=== PATIENT | male | born 1970 | race Caucasian/White ===

== ENCOUNTER 2019-06-18 02:54 | Emergency (ER) | payer MEDICAID, OTHER ==
[~2019-06-18] VITALS: Ht 172.7 cm; Wt 113.4 kg
[2019-06-18 03:23] LABS: BASOPHILS % (AUTO) 0.6 % (0.0-2.0); EOSINOPHILS # (AUTO) 0.1 K/uL (0.0-0.7); EOSINOPHILS % (AUTO) 1.9 % (0.0-7.0); HEMATOCRIT 32.3 % (36.7-47.1); HEMOGLOBIN 10.4 g/dL (12.5-16.3); LYMPHOCYTES # (AUTO) 2.1 K/uL (20.0-40.0); LYMPHOCYTES % (AUTO) 28.2 % (20.5-51.5); MEAN CORPUSCULAR HEMOGLOBIN 27.6 uug (23.8-33.4); MEAN CORPUSCULAR HGB CONC 32 g/dL (32.5-36.3); MONOCYTES # (AUTO) 0.5 K/uL (2.0-10.0); MONOCYTES % (AUTO) 6.4 % (0.0-11.0); NEUTROPHILS # (AUTO) 4.8 K/uL (1.8-8.9); NEUTROPHILS % (AUTO) 62.9 % (38.5-71.5); PLATELET COUNT (AUTO) 186 K/uL (152-348); RED BLOOD CELL COUNT(AUTO) 3.75 MIL/uL (4.06-5.63); WHITE BLOOD COUNT (AUTO) 7.6 K/uL (3.6-10.2)
--- NOTE | 2019-06-18 03:33 | NUR ---
x-ray test technician at bedside.
[2019-06-18 03:35] LABS: CREATININE 0.9 mg/dL (0.6-1.3); POTASSIUM 3.9 mmol/L (3.5-5.1)
[2019-06-18 03:48] LABS: BILIRUBIN,DIRECT 0.2 mg/dL (0.0-0.2); BILIRUBIN,TOTAL 0.5 mg/dL (0.2-1.0); TOTAL PROTEIN, SERUM 7.4 g/dL (6.4-8.2)
[2019-06-18] MEDS ORDERED: ASPIRIN 325 MG TABLET ONE (04:24)
--- NOTE | 2019-06-18 04:29 | NUR ---
business services tech at bedside
[2019-06-18] MEDS ORDERED: ASPIRIN 325 MG TABLET PO ONE (04:30)
[2019-06-18] MEDS ORDERED: TERA2CAP4 PO (06:37)
[2019-06-18] MEDS ORDERED: lantus SUBCUT (06:37)
[2019-06-18] MEDS ORDERED: ASPI-605 PO (06:37)
[2019-06-18] MEDS ORDERED: ATOR20TA PO (06:37)
[2019-06-18] MEDS ORDERED: GLIP10TA11 PO (06:37)
[2019-06-18] MEDS ORDERED: metoprolol PO (06:37)
[2019-06-18] MEDS ORDERED: METF-442 PO (06:37)
[2019-06-18] MEDS ORDERED: GABA-534 PO (06:37)
[2019-06-18] MEDS ORDERED: FURO-151 PO (06:37)
[2019-06-18] MEDS ORDERED: ESCI20TA PO (06:37)
[2019-06-18] MEDS ORDERED: abilify PO (06:37)
[2019-06-18] MEDS ORDERED: WARF7.5T23 PO (06:37)
[2019-06-18] MEDS ORDERED: LORA-258 PO (06:37)
--- NOTE | 2019-06-18 07:38 | NUR ---
Patient is awake and alert. Denies chest pain or SOB at this time. States he has an appointment with sleep apnea clinic and states he will f/u with it. DC and follow up instructions given and explained to patient who states he understands all instructions. States his friend will drive him home.
--- NOTE | 2019-06-18 07:40 | NUR ---
IV removed. Catheter intact and site benign. Pressure and 4x4 gauze applied to site. No bleeding noted.
[2019-06-19] MEDS ORDERED: INSU100V28 SQ (16:21)
[2019-06-21] MEDS ORDERED: SULF1TAB48 PO (17:45)
== END 2019-06-18 07:41 | disposition home or self-care (01) ==
LOC: ER 03:00
DX: R07.89 Other chest pain (principal); R06.02 Shortness of breath; I50.9 Heart failure, unspecified; I25.10 Atherosclerotic heart disease of native coronary artery without angina pectoris; I10 Essential (primary) hypertension; E11.9 Type 2 diabetes mellitus without complications; Z79.82 Long term (current) use of aspirin; Z79.01 Long term (current) use of anticoagulants; Z79.899 Other long term (current) drug therapy
CPT/HCPCS: 36415; 70030-TC; 71045; 85025; 93005; A4663

== ENCOUNTER 2019-06-19 12:28 | Inpatient (IN) | payer MEDICAID, OTHER ==
[~2019-06-19] VITALS: Ht 170.2 cm; Wt 198.2 kg
[~2019-06-19 12:28] MED LIST: ASPI-605 PO; ATOR20TA PO; ESCI20TA PO; FURO-151 PO; GABA-534 PO; GLIP10TA11 PO; LORA-258 PO; METF-442 PO; TERA2CAP4 PO; WARF7.5T23 PO; abilify PO; lantus SUBCUT; metoprolol PO
[2019-06-19 13:03] LABS: BASOPHILS % (AUTO) 0.3 % (0.0-2.0); EOSINOPHILS # (AUTO) 0.1 K/uL (0.0-0.7); EOSINOPHILS % (AUTO) 1.2 % (0.0-7.0); HEMATOCRIT 33.2 % (36.7-47.1); HEMOGLOBIN 10.7 g/dL (12.5-16.3); LYMPHOCYTES # (AUTO) 1.3 K/uL (20.0-40.0); LYMPHOCYTES % (AUTO) 17.4 % (20.5-51.5); MEAN CORPUSCULAR HEMOGLOBIN 27.4 uug (23.8-33.4); MEAN CORPUSCULAR HGB CONC 32 g/dL (32.5-36.3); MEAN CORPUSCULAR VOLUME 84.9 fL (73.0-96.2); MONOCYTES # (AUTO) 0.4 K/uL (2.0-10.0); MONOCYTES % (AUTO) 5.6 % (0.0-11.0); NEUTROPHILS # (AUTO) 5.6 K/uL (1.8-8.9); NEUTROPHILS % (AUTO) 75.5 % (38.5-71.5); PLATELET COUNT (AUTO) 193 K/uL (152-348); RED BLOOD CELL COUNT(AUTO) 3.91 MIL/uL (4.06-5.63); WHITE BLOOD COUNT (AUTO) 7.4 K/uL (3.6-10.2)
[2019-06-19 13:10] LABS: CREATININE 0.8 mg/dL (0.6-1.3); POTASSIUM 3.8 mmol/L (3.5-5.1)
[2019-06-19 13:27] LABS: BILIRUBIN,DIRECT 0.2 mg/dL (0.0-0.2); BILIRUBIN,TOTAL 0.6 mg/dL (0.2-1.0); TOTAL PROTEIN, SERUM 7.9 g/dL (6.4-8.2)
--- NOTE | 2019-06-19 14:20 | NUR ---
Patient is resting comfortably in bed with eyes closed, NAD noted.
--- NOTE | 2019-06-19 15:37 | NUR ---
Denies chest pain/pressure. remaines on o2 at 2l/min via nasal cannula.
[2019-06-19] MEDS ORDERED: KETOROLAC TROMETHAMINE 30 MG INJ IVP ONE (16:00)
[2019-06-19] MEDS ORDERED: KETOROLAC TROMETHAMINE 30 MG INJ ONE (16:07)
[2019-06-19] MEDS ORDERED: INSU100V28 SQ (16:21)
--- NOTE | 2019-06-19 16:50 | NUR ---
Received patient via [facility] from ER, Patient with Admitting Diagnosis of Chest Pain and cellulitis under Dr. Bojorquez, Patient is awake and verbally responsive. On Oxygen at 2LPM via nasal Cannula, with signs of labored breathing. Oxygen saturation at 100%. No complain of pain or discomfort at this time. No complain of Chest pain. Right FA gauge 20 heplock intact and patent. Patient noted with Non pitting bilateral Edema, noted with dressing on left leg but patient refused to take off the dressing. All needs attended and met. kept clean and comfortable. Will Endorse to Oncoming Nurse.
[2019-06-19 17:19] VITALS: BP 110/66
[2019-06-19] MEDS ORDERED: LORAZEPAM 0.5 MG TABLET PO PRN (17:30)
[2019-06-19] MEDS ORDERED: INSULIN REGULAR, HUMAN 300 UNIT/3 ML VIAL SQ SCH (17:30)
[2019-06-19] MEDS ORDERED: ONDANSETRON 4 MG/2 ML VIAL IV PRN (17:45)
[2019-06-19] MEDS ORDERED: ACETAMINOPHEN 325 MG TABLET PO PRN (17:45)
[2019-06-19] MEDS ORDERED: DEXTROSE 50% 50 ML DISP.SYRIN IV PRN (18:15)
[2019-06-19] MEDS: MORPHINE SULFATE 2 MG/1 ML DISP.SYRIN IV PRN ×2 (18:24→21:53)
--- NOTE | 2019-06-19 19:14 | NUR ---
PHARMACY CLINICAL NOTES (VANCOMYCIN DOSING) S: 49 YO male, admitted for chest pain, also suffering from cellulitis and edema of both lower extermities. MD ordered Zosyn and Vancomycin O: BUN/SCR; 12/0.8; WBC 7.4, TEMP 98.5, WT 198 KG used adjusted body weight for gipoijmpwmj=535.9 kg ; t 1/2 9 hrs. A/P: will dose Vancomycin as 2000 mg q12h ; estimated peak of 37 and trough of 17; first dose tonight @ 2000 will order trough prior to 4th dose on 06/21 ~ 08:30 and will adjust dose if needed. Addendum: 06/19/19 at 1921 by RAJEEV EWING CORRECTION: TROUGH ORDERED FOR 07:30
[2019-06-19 19:38] VITALS: BP 121/70
--- NOTE | 2019-06-19 19:40 | NUR ---
Received patient awake in bed, not in any form of distress. Patient is alert and oriented x 4, ambulates with walker. Noted with oxygen support at 2lpm via nasal cannula, maintained. With IV access on the right forearm, 20g, patent and intact. Bed in low position, locked, side rails up x 2 for safety, call light within reach. Noise and lights subdued. Noted with episodes of chest pain and shortness of breath during the day, will continue to monitor.
[2019-06-19] MEDS: VANCOMYCIN IV 2,000 MG in IV DEXTROSE 5% 500 ML IV SCH (20:21)
--- NOTE | 2019-06-19 20:30 | NUR ---
Patient complaining of shortness of breath, noted no order for nebulization. Verified with Dr. Bravo can order albuterol nebulization as needed.
[2019-06-19] MEDS: BLOOD SUGAR DIAGNOSTIC 1 EACH STRIP VI SCH (20:32)
[2019-06-19] MEDS: INSULIN REGULAR, HUMAN 300 UNIT/3 ML VIAL SQ PRN (20:39)
[2019-06-19] MEDS: INSULIN GLARGINE,HUM 300 UNITS/3 ML CARTRIDGE SQ SCH (20:40)
[2019-06-19] MEDS: ATORVASTATIN 20 MG TABLET PO SCH (20:40)
[2019-06-19] MEDS ORDERED: INSULIN GLARGINE SUBCUT SCH (21:00)
[2019-06-19] MEDS: TERAZOSIN 1 MG CAPSULE PO SCH (21:00)
[2019-06-19] MEDS: ALBUTEROL SULFATE 2.5 MG/3 ML NEBU NEB PRN (21:44)
[2019-06-19] MEDS: PIPERACILLIN SODIUM/TAZOBACTAM 3.375 G in IV DEXTROSE 5% 50 ML IV SCH (22:46)
[2019-06-20 00:10] VITALS: BP 126/77
[2019-06-20] MEDS: MORPHINE SULFATE 2 MG/1 ML DISP.SYRIN IV PRN ×5 (01:56→19:40)
[2019-06-20 04:24] VITALS: BP 127/73
[2019-06-20] MEDS: PIPERACILLIN SODIUM/TAZOBACTAM 3.375 G in IV DEXTROSE 5% 50 ML IV SCH ×3 (05:27→22:38)
--- NOTE | 2019-06-20 05:52 | NUR ---
Patient slept intermittently throughout the night. With complaints of shortness of breath relieved by nebulization. Has been sinus rhythm on tele monitor with stable vital signs. Attended all needs. Ensured safety and comfort. Ordered wound care consult. Per patient wound dressing on right leg was placed by his vascular doctor yesterday morning. Noted dressing appears to be with an unknown medication, will defer dressing change to wound care nurse. Will endorse accordingly.
[2019-06-20] MEDS: PANTOPRAZOLE SODIUM 40 MG TABLET.DR PO SCH (06:05)
[2019-06-20] MEDS: BLOOD SUGAR DIAGNOSTIC 1 EACH STRIP VI SCH ×4 (06:31→20:30)
[2019-06-20] MEDS: METFORMIN HCL 500 MG TABLET PO SCH ×2 (07:27→17:25)
--- NOTE | 2019-06-20 07:30 | NUR ---
Received patient in Bed, Awake and verbally responsive. On Oxygen at 2LPM,sat 97%. Pain medication given as ordered. IV site to right Forearm intact. No signs of Infiltration noted. Kept clean and comfortable. Will continue to monitor.
[2019-06-20 07:59] LABS: THYROID STIMULATING HORMONE 1.865 mIU/mL (0.358-3.740)
[2019-06-20 08:02] LABS: CREATININE 0.8 mg/dL (0.6-1.3); MAGNESIUM 1.9 mg/dL (1.8-2.4); PHOSPHOROUS 4.7 mg/dL (2.5-4.9); POTASSIUM 4.1 mmol/L (3.5-5.1)
[2019-06-20 08:03] LABS: BASOPHILS # (AUTO) 0.1 K/uL (0.0-8.0); BASOPHILS % (AUTO) 0.9 % (0.0-2.0); EOSINOPHILS # (AUTO) 0.2 K/uL (0.0-0.7); EOSINOPHILS % (AUTO) 2.3 % (0.0-7.0); HEMATOCRIT 33.3 % (36.7-47.1); HEMOGLOBIN 10.7 g/dL (12.5-16.3); LYMPHOCYTES # (AUTO) 1.3 K/uL (20.0-40.0); LYMPHOCYTES % (AUTO) 17.6 % (20.5-51.5); MEAN CORPUSCULAR HEMOGLOBIN 27.5 uug (23.8-33.4); MEAN CORPUSCULAR HGB CONC 32 g/dL (32.5-36.3); MEAN CORPUSCULAR VOLUME 85.6 fL (73.0-96.2); MONOCYTES # (AUTO) 0.4 K/uL (2.0-10.0); MONOCYTES % (AUTO) 4.9 % (0.0-11.0); NEUTROPHILS # (AUTO) 5.4 K/uL (1.8-8.9); NEUTROPHILS % (AUTO) 74.3 % (38.5-71.5); PLATELET COUNT (AUTO) 165 K/uL (152-348); RED BLOOD CELL COUNT(AUTO) 3.89 MIL/uL (4.06-5.63); WHITE BLOOD COUNT (AUTO) 7.3 K/uL (3.6-10.2)
[2019-06-20] MEDS: VANCOMYCIN IV 2,000 MG in IV DEXTROSE 5% 500 ML IV SCH ×2 (08:16→20:30)
[2019-06-20] MEDS: ASPIRIN EC 81 MG TABLET.DR PO SCH (08:48)
[2019-06-20] MEDS: ESCITALOPRAM OXALATE 10 MG TABLET PO SCH (08:49)
[2019-06-20] MEDS: FUROSEMIDE 40 MG TABLET PO SCH (08:49)
[2019-06-20] MEDS: GABAPENTIN 300 MG CAPSULE PO SCH ×2 (08:49→16:53)
[2019-06-20] MEDS: glipiZIDE 10 MG TABLET PO SCH ×2 (08:49→16:53)
[2019-06-20] MEDS: METOPROLOL SUCCINATE XL 50 MG TAB.SR.24H PO SCH (08:49)
[2019-06-20] MEDS ORDERED: Medication Not On Formulary EA (Metformin Hcl 1,000 MG) PO SCH (09:00)
[2019-06-20] MEDS ORDERED: ARIPIPRAZOLE PO SCH (09:00)
[2019-06-20] MEDS ORDERED: ARIPIPRAZOLE 2 MG TABLET PO SCH (09:00)
[2019-06-20] MEDS ORDERED: Medication Not On Formulary EA (Escitalopram Oxalate (Lexapro) 20 MG) PO SCH (09:00)
--- NOTE | 2019-06-20 10:00 | NUR ---
Patient was picked up for Video Swallow, accompanied by . Addendum: 06/20/19 at 1105 by KATT MORRISSEY RN Notes not for this patient
[2019-06-20] MEDS: ALBUTEROL SULFATE 2.5 MG/3 ML NEBU NEB PRN ×2 (10:37→21:16)
[2019-06-20 11:37] VITALS: BP 115/68
[2019-06-20] MEDS: INSULIN REGULAR, HUMAN 300 UNIT/3 ML VIAL SQ PRN (12:03)
--- NOTE | 2019-06-20 14:08 | NUR ---
PHARMACY CLINICAL NOTES (VANCOMYCIN DOSING) S: 49 YO male, continue vanco for cellulitis . MD ordered Zosyn also O: BUN/SCR; 11/0.8; WBC 7.3, TEMP 97.9, WT 198 KG used adjusted body weight for eeairnnqxuv=150.9 kg ; t 1/2 9 hrs. A/P: will continue Vancomycin as 2000 mg q12h ; estimated peak of 37 and trough of 17; 2nd dose given today at 0800. Will order trough prior to 4th dose (ordered for tomorrow at 0730). Will adjust dose if needed.
--- NOTE | 2019-06-20 14:15 | NUR ---
Seen by Wound Nurse, took off the Dressing and took a picture of Right Leg cellulitis.
--- NOTE | 2019-06-20 14:47 | NUR ---
WOUND CARE CONSULT: PT PRESENTS WITH RT LOWER LEG DISCOLORED AREA AND DRY BLACK SCAB WELL RT DORSAL FOOT WOUND, PRESENT ON ADMISSION. PT HAD UNNA WRAP ON RT LOWER LEG WHICH WAS REMOVED. PT STATES WAS SEEING OUTSIDE VASCULAR SURGEON FOR CELLULITIS BEFORE ADMISSION. RECOMMENDATIONS MADE FOR SKIN PROTECTION AND WOUND CARE. DISCUSSED WITH NURSING STAFF. RECOMMEND DPM CONSULT. DR GRIMALDO NOTIFIED OF NEED FOR DPM CONSULT. WILL SEE PRN. PT IS CONTINENT AND INDEPENDENT WITH BED MOBILITY. MD IN AGREEMENT WITH PLAN OF CARE. CURRENT LINDA SCORE IS 19. Addendum: 06/20/19 at 1453 by FANY MILLER RN Amended: Links added.
[2019-06-20] MEDS ORDERED: Z GUARD REMEDY PASTE 57 GM TUBE TOP PRN (15:00)
[2019-06-20 15:18] VITALS: BP 110/72
[2019-06-20] MEDS: WARFARIN SODIUM 7.5 MG TABLET PO SCH (16:53)
--- NOTE | 2019-06-20 18:12 | NUR ---
Patient in bed, awake, alert and verbally responsive. On Oxygen at 2LPM, No complain of SOB. Pain medication given as ordered. No signs of Hyper/Hypoglycemia. All needs attended and met. Seen by Wound Nurse with new wound Order. All needs attended and met. Will Endorse to Oncoming Nurse.
--- NOTE | 2019-06-20 19:40 | NUR ---
Received patient awake in bed, not in any form of distress. Patient is alert and oriented x 4, ambulates with walker. Noted with oxygen support at 2lpm via nasal cannula, tolerated and maintained. With IV access on the right forearm, 20g, patent and intact. Bed in low position, locked, side rails up x 2 for safety, call light within reach. Noise and lights subdued. Noted with episodes of chest pain and shortness of breath during the day, will continue to monitor.
[2019-06-20 20:00] VITALS: BP 101/62
[2019-06-20] MEDS: ATORVASTATIN 20 MG TABLET PO SCH (20:24)
[2019-06-20] MEDS: TERAZOSIN 1 MG CAPSULE PO SCH (20:29)
[2019-06-20] MEDS: INSULIN GLARGINE,HUM 300 UNITS/3 ML CARTRIDGE SQ SCH (20:38)
[2019-06-21] VITALS: BP 101/52
[2019-06-21] MEDS: MORPHINE SULFATE 2 MG/1 ML DISP.SYRIN IV PRN ×2 (00:13→04:18)
--- NOTE | 2019-06-21 00:40 | NUR ---
Patient found on the floor on his back in front of restroom and walker, per patient "I was trying to go to the restroom, fell backward and hit my head." Patient complaining of pain behind his head and on his back. With help of staff and patient effort, was able to have him sit on his walker and transfer to bed safely. Vitals signs stable, KM=658/52 and HR=66. Random blood sugar check done = 120mg/dl. Patient speaking in full sentences, alert and oriented x 4, no neurological deficits noted.
--- NOTE | 2019-06-21 00:45 | NUR ---
Contacted calendar control clerk blood bank provider, Dr. Allred and reported the events, provider ordered for CT Scan of the head.
--- NOTE | 2019-06-21 01:20 | NUR ---
Per radiologist, CT Scan machine can only support a 300lb patient. Patient weighs 438lbs, unable to do the test. Radiologist checked with [facility] and they are unable to perform the test because of the patient's weight. Informed Dr. Allred that CT scan cannot be done, he ordered to continue to closely monitor the patient and perform neurological assessment every 3hours and if any neurological changes or deficit is noted to report to provider. Nursing emergency crew supervisor also made aware of all the events that happened.
--- NOTE | 2019-06-21 01:30 | NUR ---
No noted swelling or redness behind patient's head and back. Noted arms and leg strength same with baseline. Will continue to closely monitor.
[2019-06-21] MEDS: PIPERACILLIN SODIUM/TAZOBACTAM 3.375 G in IV DEXTROSE 5% 50 ML IV SCH ×2 (05:37→13:29)
[2019-06-21] MEDS: PANTOPRAZOLE SODIUM 40 MG TABLET.DR PO SCH (06:37)
[2019-06-21] MEDS: BLOOD SUGAR DIAGNOSTIC 1 EACH STRIP VI SCH ×3 (06:37→16:42)
--- NOTE | 2019-06-21 06:41 | NUR ---
Patient slept intermittently throughout the night. With complaints of shortness of breath relieved by nebulization. Has been sinus rhythm on tele monitor with stable vital signs. Attended all needs. Ensured safety and comfort. Frequent neurological assessment done, no deficits noted. Will endorse accordingly.
--- NOTE | 2019-06-21 07:30 | NUR ---
patient in bed, awake and verbally responsive. No signs of distress noted. On Oxygen at 2LPM via nasal canula, sat 100%. No complain of pain or discomfort at this time. No signs of Hyper/Hypoglycemia. All needs attended and met. kept the call button within easy reach. Bed in lowest position. Will continue to monitor for S/P fall. Will continue to monitor.
--- NOTE | 2019-06-21 07:42 | NUR ---
Attempted to call patient's to inform her of the events last night, she picked up the call but hung up before I was able to say anything. Endorsed to day shift nurse to follow up.
[2019-06-21] MEDS: METFORMIN HCL 500 MG TABLET PO SCH (07:49)
[2019-06-21] MEDS: glipiZIDE 10 MG TABLET PO SCH ×2 (08:18→17:02)
[2019-06-21] MEDS: ESCITALOPRAM OXALATE 10 MG TABLET PO SCH (08:18)
[2019-06-21] MEDS: FUROSEMIDE 40 MG TABLET PO SCH (08:18)
[2019-06-21] MEDS: ASPIRIN EC 81 MG TABLET.DR PO SCH (08:18)
[2019-06-21] MEDS: GABAPENTIN 300 MG CAPSULE PO SCH ×2 (08:19→17:02)
[2019-06-21] MEDS: METOPROLOL SUCCINATE XL 50 MG TAB.SR.24H PO SCH (08:19)
[2019-06-21] MEDS ORDERED: NEOMY/BACITRAC/POLYMI OINT 28.35 GM TUBE TOP SCH (09:00)
[2019-06-21] MEDS ORDERED: VANCOMYCIN IV 2,000 MG in IV DEXTROSE 5% 500 ML IV SCH (10:00)
--- NOTE | 2019-06-21 11:08 | NUR ---
PHARMACY CLINICAL NOTES (VANCOMYCIN DOSING) S: To continue vanco dosing for this 49 YO male patient cellulitis . O: BUN/SCR; 11/0.8 (06/20) ; WBC 7.3 (06/20) , TEMP 97.5, Vanco trough level on 06/21 : 16 mcg/ml (lab paul level 45 mins late (drawn at 0815 instead of 0730) wt 198 kg ht 170 cm A/P: will continue Vancomycin as 2000 mg IV q12h. Since lab release vanco trough level at 0920, had to reschedule 0800 dose for 1000. Will continue to monitor
[2019-06-21 11:46] VITALS: BP 120/60
[2019-06-21] MEDS: INSULIN REGULAR, HUMAN 300 UNIT/3 ML VIAL SQ PRN (12:04)
[2019-06-21 15:53] VITALS: BP 116/58
[2019-06-21] MEDS: WARFARIN SODIUM 7.5 MG TABLET PO SCH (17:02)
[2019-06-21] MEDS ORDERED: SULF1TAB48 PO (17:45)
--- NOTE | 2019-06-21 18:02 | NUR ---
patient is awake and verbally responsive. no signs of Distress noted. no SOB. No complain of pain or discomfort. Debies Chest pain. patient with Discharge Order today. patient and family is aware. Discharge instructions given and verbalizec understanding, patient with new Prescription of BactrimDS PO x 7 days. Removed IV site and wrist band. Wound care done, Accompanied patuient to car in stable condition.
[2019-06-21] MEDS ORDERED: CULTURELLE CAPSULE PO SCH (21:00)
== END 2019-06-21 18:10 | disposition home or self-care (01) | DRG 203 ==
LOC: ER 12:28 → TELE3 16:14
PROVIDERS: ADMIT Internal Medicine; ATTEND Internal Medicine
DX: M94.0 Chondrocostal junction syndrome [Tietze] (principal); E11.42 Type 2 diabetes mellitus with diabetic polyneuropathy; E66.01 Morbid (severe) obesity due to excess calories; I11.0 Hypertensive heart disease with heart failure; I50.9 Heart failure, unspecified; L03.115 Cellulitis of right lower limb; L97.811 Non-pressure chronic ulcer of other part of right lower leg limited to breakdown of skin; Z68.44 Body mass index [BMI] 60.0-69.9, adult; I87.2 Venous insufficiency (chronic) (peripheral); S90.811A Abrasion, right foot, initial encounter; X58.XXXA Exposure to other specified factors, initial encounter; Y92.89 Other specified places as the place of occurrence of the external cause; D63.8 Anemia in other chronic diseases classified elsewhere; Z79.899 Other long term (current) drug therapy; Z79.4 Long term (current) use of insulin; Z79.01 Long term (current) use of anticoagulants; I25.10 Atherosclerotic heart disease of native coronary artery without angina pectoris; G47.33 Obstructive sleep apnea (adult) (pediatric)
CPT/HCPCS: 36415; 70030-TC; 71045; 83550; 83605; 83735; 84100; 84443; 85025; 85610; 85730; 87040; 93005; 94640; 94664; A4663; G0378; J1815; J1885; J2270; J2543; J3370; J7050; J7060

== ENCOUNTER 2020-01-18 20:11 | Emergency (ER) | payer MEDICAID, OTHER ==
[~2020-01-18] VITALS: Ht 170.2 cm; Wt 163.3 kg
--- NOTE | 2020-01-18 20:25 | NUR ---
Dr. Cook at bedside for MSE
[2020-01-18] MEDS ORDERED: HYDROCODONE/APAP 10-325 MG TABLET ONE ×2 (20:58→23:12)
[2020-01-18] MEDS ORDERED: ONDANSETRON ODT 4 MG TAB.RAPDIS ONE (20:58)
[2020-01-18] MEDS ORDERED: ONDANSETRON ODT 4 MG TAB.RAPDIS SL ONE (21:00)
[2020-01-18] MEDS ORDERED: HYDROCODONE/APAP 10-325 MG TABLET PO ONE ×2 (21:00→23:15)
--- NOTE | 2020-01-18 21:00 | NUR ---
Patient taken to CT scan in stable condition
[2020-01-18 21:09] LABS: *BILIRUBIN,URIN NEGATIVE (NEGATIVE); *BLOOD, URINE NEGATIVE (NEGATIVE); *CLARITY,URINE CLEAR (CLEAR); *COLOR,URINE YELLOW (YELLOW); *KETONES,URINE NEGATIVE (NEGATIVE); *UROBILINOGEN,URINE 0.2 E.U./dl (NORMAL); LEUKOCYTE ESTERASE ,URINE NEGATIVE (NEGATIVE); NITRITE, URINE NEGATIVE (NEGATIVE); PH,URINE 5.5 (5.0-8.0); UGLUCOSE NEGATIVE (NEGATIVE)
--- NOTE | 2020-01-18 21:25 | NUR ---
Patient back from CT in stable condition
[2020-01-18] MEDS ORDERED: DOXYCYCLINE HYCLATE 100 MG TABLET PO ONE (22:00)
[2020-01-18] MEDS ORDERED: DOXYCYCLINE HYCLATE 100 MG TABLET ONE (22:00)
[2020-01-18] MEDS ORDERED: CEFTRIAXONE 1 G VIAL ONE (22:00)
[2020-01-18] MEDS ORDERED: CEFTRIAXONE 1 G VIAL IM ONE (22:00)
--- NOTE | 2020-01-18 22:40 | NUR ---
Spoke with GUTIERREZ from [facility] with [facility] for 45min with trip# [id number] . Patient made aware, no further concern at this time
[2020-01-18 23:00] VITALS: BP 139/74
--- NOTE | 2020-01-18 23:17 | NUR ---
Spoke with Lauren from [facility] for report. no further concerns at this time
--- NOTE | 2020-01-18 23:40 | NUR ---
Patient discharged to home in stable condition. Written and verbal after care instructions given. Patient verbalizes understanding of instructions. Stressed follow up or return to ER for worsening s/s. Patient picked up by [facility] unit [id number] via [facility] in stable condition.
== END 2020-01-18 23:40 ==
LOC: ER 20:13
PROC: 2W39X1Z Immobilization of Left Upper Extremity using Splint (ICD-10-PCS; principal; 2020-01-18)
DX: S42.252A Displaced fracture of greater tuberosity of left humerus, initial encounter for closed fracture (principal); W18.30XA Fall on same level, unspecified, initial encounter; Y92.129 Unspecified place in nursing home as the place of occurrence of the external cause; E66.01 Morbid (severe) obesity due to excess calories; Z86.718 Personal history of other venous thrombosis and embolism; J44.9 Chronic obstructive pulmonary disease, unspecified; N40.0 Benign prostatic hyperplasia without lower urinary tract symptoms; R10.30 Lower abdominal pain, unspecified; K40.20 Bilateral inguinal hernia, without obstruction or gangrene, not specified as recurrent; R68.89 Other general symptoms and signs; N50.89 Other specified disorders of the male genital organs; E11.9 Type 2 diabetes mellitus without complications; Z79.4 Long term (current) use of insulin; G47.33 Obstructive sleep apnea (adult) (pediatric)
CPT/HCPCS: 29105; 74176; 76870; 81001; 82962; 96372; 99285; J0696; A4663; Q0162

== ENCOUNTER 2022-04-18 23:26 | Emergency (ER) | payer MEDICAID ==
[~2022-04-18] VITALS: Ht 170.2 cm; Wt 158.8 kg
[~2022-04-18 23:26] MED LIST changes: +ACET-2154 PO; +ALBU1.25 IH; +ARIP5TAB10; -ASPI-605 PO; +ATOR40TA29; +BISA-79 PO; +BUPR-319; +BUPR150T5 PO; +BUSP15TA3 PO; +CLON0.1T PO; +CLOP75TA33; +DEXT50DI8 IV; -ESCI20TA PO; +FLUT1BLS11; -FURO-151 PO; +FURO40TA5; +FURO40TA5 PO; +GLUC1KIT IM; +INSU100C; +INSU100I26 SQ; +INSU300I3 SUBCUT; +IPRA0.2S48 NEB; +ISOS30TA86 PO; +LISI-782 PO; +METF-441; +METO100T14 PO; +NITR0.4T48 SL; +RISP0.5T5 PO; +TOPI100C6; +TOPI100T PO; +ZAFI10TA5; -abilify PO; -lantus SUBCUT; -metoprolol PO
[2022-04-18] MEDS ORDERED: EMPA10TA (23:57)
[2022-04-18] MEDS ORDERED: GABA600T12 (23:57)
--- NOTE | 2022-04-19 00:30 | NUR ---
called warehouse team member for vein finder
[2022-04-19 00:36] LABS: HEMATOCRIT 37.6 % (36.7-47.1); MEAN CORPUSCULAR HEMOGLOBIN 27.5 uug (23.8-33.4); MEAN CORPUSCULAR VOLUME 83.6 fL (73.0-96.2); PLATELET COUNT (AUTO) 218 K/uL (152-348)
--- NOTE | 2022-04-19 00:45 | NUR ---
No vein finder available
--- NOTE | 2022-04-19 00:46 | NUR ---
As per [employer] automation and controls supervisor no midline nurse available at this time
[2022-04-19 00:58] LABS: *AMPHETAMINE, URINE NEGATIVE (NEGATIVE); *CANNABINOID, URINE NEGATIVE (NEGATIVE); *COCCAINE, URINE NEGATIVE (NEGATIVE); *OPIATE, URINE NEGATIVE (NEGATIVE); *PHENCYCLIDINE SCREEN,URINE NEGATIVE (NEGATIVE)
--- NOTE | 2022-04-19 01:00 | NUR ---
Patient taken to CT
[2022-04-19 01:01] LABS: ALANINE AMINOTRANSFERASE 74 U/L (16-63); ALKALINE PHOSPHATASE 186 U/L (50-136); ASPARTATE AMINOTRANSFERASE 49 U/L (15-37); BILIRUBIN,DIRECT 0.2 mg/dL (0.0-0.2); BILIRUBIN,TOTAL 0.6 mg/dL (0.2-1.0); CARBON DIOXIDE 24 mmol/L (21-32); CHLORIDE 99 mmol/L (98-107); CREATININE 0.9 mg/dL (0.6-1.3); GLUCOSE 190 mg/dL (74-106); POTASSIUM 3.6 mmol/L (3.5-5.1); UREA NITROGEN, BLOOD 17 mg/dL (7-18)
[2022-04-19 01:03] LABS: ETHANOL < 3 MG/DL (0-0)
--- NOTE | 2022-04-19 02:12 | NUR ---
clinical info given to lori Licea is capitated to [facility]. She states she will call us back for more information.
[2022-04-19] MEDS ORDERED: ONDANSETRON 4 MG/2 ML VIAL ONE (02:28)
--- NOTE | 2022-04-19 02:29 | NUR ---
call received from [facility] pt is accepted at [facility]. they are requesting face sheet and ed summary report. accepting doctor is Hanna and it will be a tele bed.
[2022-04-19] MEDS ORDERED: ONDANSETRON 4 MG/2 ML VIAL IV ONE (02:30)
--- NOTE | 2022-04-19 06:10 | NUR ---
report given to Korin [facility]
--- NOTE | 2022-04-19 06:15 | NUR ---
called [facility] ambulance for tranportation. Patient will be transfered to [facility] Telemetry room [address] Ferreira
--- NOTE | 2022-04-19 07:17 | NUR ---
report given to Lawrence MORRIS
== END 2022-04-19 08:50 | disposition short-term general hospital (02) ==
LOC: ER 23:27
DX: R20.0 Anesthesia of skin (principal); E11.65 Type 2 diabetes mellitus with hyperglycemia; Z20.822 Contact with and (suspected) exposure to COVID-19; I69.354 Hemiplegia and hemiparesis following cerebral infarction affecting left non-dominant side; R60.0 Localized edema; G89.29 Other chronic pain; I10 Essential (primary) hypertension; Z79.02 Long term (current) use of antithrombotics/antiplatelets; Z79.84 Long term (current) use of oral hypoglycemic drugs; Z79.4 Long term (current) use of insulin; E78.00 Pure hypercholesterolemia, unspecified; E66.01 Morbid (severe) obesity due to excess calories; Z68.43 Body mass index [BMI] 50.0-59.9, adult; R94.31 Abnormal electrocardiogram [ECG] [EKG]
CPT/HCPCS: 36415; 93005; 71045; 80307; 80076; 80048; 85025; 85730; 86850; 86900; 86901; 87426; 84484 ×2; 70450; 99285; 96374; 80320; J2405; A4663; G0480

== ENCOUNTER 2025-03-21 14:35 | Emergency (ER) | payer OTHER, MEDICAID ==
[~2025-03-21] VITALS: Ht 170.2 cm; Wt 118.4 kg
[~2025-03-21 14:35] MED LIST changes: +EMPA10TA; +GABA600T12
[2025-03-21] MEDS: IV NORMAL SALINE 1000 ML BAG IV ONE (15:16)
[2025-03-21 15:36] LABS: BASOPHILS % (AUTO) 0.6 % (0.0-2.0); EOSINOPHILS # (AUTO) 0.1 K/uL (0.0-0.7); EOSINOPHILS % (AUTO) 2.8 % (0.0-7.0); HEMATOCRIT 24.3 % (36.7-47.1); LYMPHOCYTES # (AUTO) 0.6 K/uL (0.8-4.8); LYMPHOCYTES % (AUTO) 13.1 % (20.5-51.5); MEAN CORPUSCULAR HEMOGLOBIN 27.7 uug (23.8-33.4); MEAN CORPUSCULAR HGB CONC 33 g/dL (32.5-36.3); MEAN CORPUSCULAR VOLUME 84.1 fL (73.0-96.2); MONOCYTES # (AUTO) 0.4 K/uL (0.1-1.30); MONOCYTES % (AUTO) 7.5 % (0.0-11.0); NEUTROPHILS # (AUTO) 3.6 K/uL (1.8-8.9); PLATELET COUNT (AUTO) 124 K/uL (152-348); RED BLOOD CELL COUNT(AUTO) 2.89 MIL/uL (4.06-5.63); WHITE BLOOD COUNT (AUTO) 4.7 K/uL (3.6-10.2)
[2025-03-21 15:39] LABS: DIFFERENTIAL COMMENT 1
[2025-03-21 15:44] LABS: AMMONIA 18 umol/L (11-32)
[2025-03-21 15:47] LABS: CALCIUM 8.6 mg/dL (8.5-10.1); CARBON DIOXIDE 28 mmol/L (21-32); CHLORIDE 106 mmol/L (98-107); CREATININE 1.1 mg/dL (0.6-1.3); GLUCOSE 111 mg/dL (74-106); POTASSIUM 3.6 mmol/L (3.5-5.1); SODIUM SERUM 142 mmol/L (136-145); UREA NITROGEN, BLOOD 14 mg/dL (7-18)
[2025-03-21 15:48] LABS: ACETAMINOPHEN < 2.0 ug/mL (10-30); ALANINE AMINOTRANSFERASE 22 U/L (16-63); ALBUMIN 2.8 g/dL (3.4-5.0); ALKALINE PHOSPHATASE 190 U/L (50-136); ASPARTATE AMINOTRANSFERASE 25 U/L (15-37); BILIRUBIN,DIRECT 0.2 mg/dL (0.0-0.2); BILIRUBIN,TOTAL 0.6 mg/dL (0.2-1.0); TOTAL PROTEIN, SERUM 6.6 g/dL (6.4-8.2)
[2025-03-21 15:55] LABS: THYROID STIMULATING HORMONE 5.267 mIU/mL (0.358-3.740)
[2025-03-21 15:56] LABS: ETHANOL < 3 MG/DL (0-10)
[2025-03-21 16:21] LABS: *BILIRUBIN,URIN NEGATIVE (NEGATIVE); *BLOOD, URINE 3+ (NEGATIVE); *CLARITY,URINE CLEAR (CLEAR); *COLOR,URINE YELLOW (YELLOW); *KETONES,URINE NEGATIVE (NEGATIVE); *PROTEIN,URINE NEGATIVE (NEGATIVE); LEUKOCYTE ESTERASE ,URINE NEGATIVE (NEGATIVE); NITRITE, URINE NEGATIVE (NEGATIVE); PH,URINE 6.5 (5.0-8.0); UGLUCOSE NEGATIVE (NEGATIVE)
[2025-03-21 16:31] LABS: *AMPHETAMINE, URINE NEGATIVE (NEGATIVE); *BARBITURATE, URINE NEGATIVE (NEGATIVE); *BENZODIAZEPINE, URINE NEGATIVE (NEGATIVE); *CANNABINOID, URINE POSITIVE (NEGATIVE); *COCCAINE, URINE NEGATIVE (NEGATIVE); *OPIATE, URINE POSITIVE (NEGATIVE); *PHENCYCLIDINE SCREEN,URINE NEGATIVE (NEGATIVE); FENTANYL, URINE NEGATIVE (NEGATIVE)
[2025-03-21 16:34] LABS: RBC,URINE 20-50 /HPF (0-3); WBC,URINE 0-3 /HPF (0-3)
[2025-03-21 16:35] LABS: BACTERIA,URINE FEW /HPF (NONE SEEN); SQUAMOUS EPITHELIAL CELL,UR FEW /HPF (NONE SEEN)
[2025-03-21 19:43] VITALS: BP 108/64; O2SAT 98
== END 2025-03-21 19:20 | disposition left against medical advice (07) ==
LOC: ER 14:35
DX: T67.1XXA Heat syncope, initial encounter (principal); E11.9 Type 2 diabetes mellitus without complications; E78.5 Hyperlipidemia, unspecified; I10 Essential (primary) hypertension; R41.82 Altered mental status, unspecified; Z79.02 Long term (current) use of antithrombotics/antiplatelets; Z79.4 Long term (current) use of insulin; Z79.51 Long term (current) use of inhaled steroids; Z79.84 Long term (current) use of oral hypoglycemic drugs; Z79.899 Other long term (current) drug therapy; Z86.73 Personal history of transient ischemic attack (TIA), and cerebral infarction without residual deficits; Z88.7 Allergy status to serum and vaccine; R42 Dizziness and giddiness; R53.1 Weakness; R11.0 Nausea; Z60.2 Problems related to living alone; Z20.822 Contact with and (suspected) exposure to COVID-19; X58.XXXA Exposure to other specified factors, initial encounter; Y93.89 Activity, other specified; Y92.89 Other specified places as the place of occurrence of the external cause; Y99.8 Other external cause status
CPT/HCPCS: 80076; 80048; 81001; 82140; 82962; 84443; 85025; 85730; 87426; 87040 ×2; 87186; 87086; 87077; 84484 ×2; 36415; 71045; 70450; 72125; 93005; 99285; 96360; 83605; 80299; 80320; 80307; J7040; A4606; A4663; G0480

== ENCOUNTER 2025-03-22 21:29 | Emergency (ER) | payer OTHER, MEDICAID ==
[~2025-03-22] VITALS: Ht 170.2 cm; Wt 118.4 kg
[2025-03-22 22:25] LABS: BASOPHILS % (AUTO) 0.9 % (0.0-2.0); EOSINOPHILS # (AUTO) 0.1 K/uL (0.0-0.7); HEMATOCRIT 25.1 % (36.7-47.1); HEMOGLOBIN 8.3 g/dL (12.5-16.3); LYMPHOCYTES # (AUTO) 0.8 K/uL (0.8-4.8); LYMPHOCYTES % (AUTO) 19.1 % (20.5-51.5); MEAN CORPUSCULAR HEMOGLOBIN 28.3 uug (23.8-33.4); MEAN CORPUSCULAR HGB CONC 33 g/dL (32.5-36.3); MEAN CORPUSCULAR VOLUME 85.7 fL (73.0-96.2); MONOCYTES # (AUTO) 0.3 K/uL (0.1-1.30); MONOCYTES % (AUTO) 7.7 % (0.0-11.0); NEUTROPHILS # (AUTO) 3.1 K/uL (1.8-8.9); NEUTROPHILS % (AUTO) 69.3 % (38.5-71.5); PLATELET COUNT (AUTO) 137 K/uL (152-348); RED BLOOD CELL COUNT(AUTO) 2.93 MIL/uL (4.06-5.63); WHITE BLOOD COUNT (AUTO) 4.4 K/uL (3.6-10.2)
[2025-03-22 22:31] LABS: DIFFERENTIAL COMMENT 1
[2025-03-22 22:37] LABS: CALCIUM 8.7 mg/dL (8.5-10.1); CREATININE 1.1 mg/dL (0.6-1.3); POTASSIUM 3.8 mmol/L (3.5-5.1)
[2025-03-22 22:52] LABS: ALBUMIN 2.9 g/dL (3.4-5.0); BILIRUBIN,DIRECT 0.2 mg/dL (0.0-0.2); BILIRUBIN,TOTAL 0.5 mg/dL (0.2-1.0); TOTAL PROTEIN, SERUM 7.2 g/dL (6.4-8.2)
[2025-03-23] MEDS ORDERED: MONT10TA33 MT (01:32)
[2025-03-23] MEDS ORDERED: BENZ-38 MT (01:32)
[2025-03-23] MEDS ORDERED: ACET-73 MT (01:32)
[2025-03-23] MEDS ORDERED: SUCR1TAB MT (01:32)
[2025-03-23] MEDS ORDERED: ATOR40TA (01:32)
[2025-03-23] MEDS ORDERED: DOCUSATE (01:32)
[2025-03-23] MEDS ORDERED: TOPI50TA24 MT (01:32)
[2025-03-23] MEDS ORDERED: AMOX500C2 MT (01:32)
[2025-03-23] MEDS ORDERED: MIRT-93 MT (01:32)
[2025-03-23] MEDS ORDERED: IBUP-1953 MT (01:32)
[2025-03-23] MEDS ORDERED: DOCU250C76 (01:32)
[2025-03-23] MEDS ORDERED: LEVO25TA (01:32)
[2025-03-23] MEDS ORDERED: TAMS-3 (01:32)
[2025-03-23] MEDS ORDERED: OMEP20CA15 MT (01:32)
[2025-03-23] MEDS ORDERED: POTA20TA83 MT (01:32)
[2025-03-23] MEDS ORDERED: NUT.237L70 (01:32)
[2025-03-23] MEDS ORDERED: DOXY100C5 MT (01:32)
[2025-03-23] MEDS ORDERED: ASPI-1420 MT (01:32)
[2025-03-23] MEDS ORDERED: METO-356 MT (01:32)
[2025-03-23] MEDS ORDERED: DULO30CA2 MT (01:32)
[2025-03-23] MEDS ORDERED: FERR325T27 MT (01:32)
[2025-03-23] MEDS ORDERED: DABI150C (01:32)
[2025-03-23] MEDS ORDERED: ARIP5TAB59 MT (01:32)
[2025-03-23] MEDS ORDERED: HYDR-3972 MT (01:32)
[2025-03-23 05:00] VITALS: O2SAT 100
== END 2025-03-23 05:22 | disposition short-term general hospital (02) ==
LOC: ER 22:26
DX: R07.89 Other chest pain (principal); D64.9 Anemia, unspecified; E11.9 Type 2 diabetes mellitus without complications; E66.01 Morbid (severe) obesity due to excess calories; F32.A Depression, unspecified; F41.9 Anxiety disorder, unspecified; G47.30 Sleep apnea, unspecified; I11.0 Hypertensive heart disease with heart failure; I50.9 Heart failure, unspecified; J44.9 Chronic obstructive pulmonary disease, unspecified; N40.0 Benign prostatic hyperplasia without lower urinary tract symptoms; Z79.01 Long term (current) use of anticoagulants; Z79.02 Long term (current) use of antithrombotics/antiplatelets; Z79.4 Long term (current) use of insulin; Z79.51 Long term (current) use of inhaled steroids; Z79.82 Long term (current) use of aspirin; Z79.84 Long term (current) use of oral hypoglycemic drugs; Z79.899 Other long term (current) drug therapy; Z86.718 Personal history of other venous thrombosis and embolism; Z86.73 Personal history of transient ischemic attack (TIA), and cerebral infarction without residual deficits; Z87.442 Personal history of urinary calculi; Z88.7 Allergy status to serum and vaccine; Z60.2 Problems related to living alone; Z85.89 Personal history of malignant neoplasm of other organs and systems; Z88.8 Allergy status to other drugs, medicaments and biological substances; Z68.41 Body mass index [BMI] 40.0-44.9, adult
CPT/HCPCS: 36415; 71045; 84484; 85025; 85730; A4606; A4663

== ENCOUNTER 2025-06-05 16:27 | Inpatient (IN) | payer OTHER, MEDICAID ==
[~2025-06-05] VITALS: Ht 170.2 cm; Wt 131.5 kg
[~2025-06-05 16:27] MED LIST changes: -ACET-2154 PO; +ACET-73 MT; +AMOX500C2 MT; -ARIP5TAB10; +ARIP5TAB59 PO; +ASPI-1420 PO; -ATOR20TA PO; +ATOR40TA PO; -ATOR40TA29; +BENZ-38 PO; -BISA-79 PO; -BUPR-319; -BUPR150T5 PO; -BUSP15TA3 PO; -CLON0.1T PO; -CLOP75TA33; +DABI150C PO; -DEXT50DI8 IV; +DOCU250C76 PO; +DOXY100C5 MT; +DULO30CA2 PO; -EMPA10TA; +FERR325T27 PO; -GABA600T12; +GABA600T12 PO; -GLIP10TA11 PO; -GLUC1KIT IM; +HYDR-3972 PO; +IBUP-1953 MT; +INSU300I3 SQ; -INSU300I3 SUBCUT; +LEVO25TA PO; +METO-356 PO; -METO100T14 PO; +MIRT-93 PO; +MONT10TA33 PO; +NUT.237L70; +OMEP20CA15 PO; +POTA20TA83 PO; -RISP0.5T5 PO; +SUCR1TAB PO; +TAMS-3 PO; -TERA2CAP4 PO; -TOPI100C6; -TOPI100T PO; +TOPI50TA24 PO; -WARF7.5T23 PO; -ZAFI10TA5
[2025-06-05 17:26] LABS: PLATELET COUNT (AUTO) 119 K/uL (152-348); RED BLOOD CELL COUNT(AUTO) 3.22 MIL/uL (4.06-5.63); RED CELL DISTRIBUTION WIDTH 17.5 % (12.1-16.2); WHITE BLOOD COUNT (AUTO) 4.8 K/uL (3.6-10.2)
[2025-06-05] MEDS ORDERED: NITROGLYCERIN OINT 1 GM PACKET TP ONE (17:30)
[2025-06-05] MEDS: NITROGLYCERIN OINT 1 GM PACKET TP ONE (17:33)
[2025-06-05 17:37] LABS: CREATININE 1.2 mg/dL (0.6-1.3); SODIUM SERUM 141 mmol/L (136-145); UREA NITROGEN, BLOOD 16 mg/dL (7-18)
[2025-06-05] MEDS ORDERED: ACET325C7 PO (17:42)
[2025-06-05 17:51] LABS: ASPARTATE AMINOTRANSFERASE 17 U/L (15-37); TOTAL PROTEIN, SERUM 7.2 g/dL (6.4-8.2)
[2025-06-05] MEDS ORDERED: POTASSIUM BICARBONATE/CIT AC 25 MEQ TABLET.EFF ONE (18:30)
[2025-06-05] MEDS ORDERED: OXYCODONE/APAP 5-325 MG TABLET ONE (18:31)
[2025-06-05] MEDS: POTASSIUM BICARBONATE/CIT AC 25 MEQ TABLET.EFF PO ONE (18:35)
[2025-06-05] MEDS: OXYCODONE/APAP 5-325 MG TABLET PO ONE (18:35)
[2025-06-05] MEDS ORDERED: FUROSEMIDE 40 MG/4 ML VIAL ONE (18:56)
[2025-06-05] MEDS: FUROSEMIDE 40 MG/4 ML VIAL IV ONE (18:59)
[2025-06-05 19:14] VITALS: BP 125/75
[2025-06-05] MEDS ORDERED: DEXTROSE 50% 50 ML DISP.SYRIN IV PRN (20:30)
[2025-06-05] MEDS ORDERED: ONDANSETRON 4 MG/2 ML VIAL IV PRN (20:30)
[2025-06-05] MEDS ORDERED: INSULIN REGULAR, HUMAN 1000 UNIT/10 ML VIAL SQ PRN (20:30)
[2025-06-05] MEDS ORDERED: INSULIN REGULAR, HUMAN 300 UNITS/3 ML VIAL SQ PRN (20:30)
[2025-06-05] MEDS ORDERED: MAGNESIUM HYDROXIDE 30 ML LIQUID UDC PO PRN (20:30)
[2025-06-05] MEDS ORDERED: ALBUTEROL SULFATE 1.25 MG/3 ML NEBU IH PRN (20:45)
[2025-06-05] MEDS ORDERED: IPRATROPIUM BROMIDE 0.5 MG/2.5 ML NEBU NEB PRN (20:45)
[2025-06-05] MEDS: SUCRALFATE 1 G TABLET PO SCH (22:20)
[2025-06-05] MEDS: BLOOD SUGAR DIAGNOSTIC 1 EACH STRIP VI SCH (22:31)
[2025-06-05 23:00] VITALS: BP 128/75; TEMP 97.6; O2SAT 98
[2025-06-06 00:20] VITALS: BP 114/65; TEMP 97.5; O2SAT 100
[2025-06-06] MEDS: MORPHINE SULFATE 2 MG/1 ML DISP.SYRIN IV ONE (00:42)
[2025-06-06 03:36] VITALS: BP 133/62; O2SAT 99
[2025-06-06] MEDS: ACETAMINOPHEN 325 MG TABLET PO PRN (03:36)
[2025-06-06 04:55] VITALS: BP 109/59; TEMP 97.7; O2SAT 98
[2025-06-06] MEDS: PANTOPRAZOLE SODIUM 40 MG TABLET.DR PO SCH (06:06)
[2025-06-06] MEDS ORDERED: PANTOPRAZOLE SODIUM 40 MG TABLET.DR PO SCH (07:00)
[2025-06-06 07:06] LABS: PLATELET COUNT (AUTO) 120 K/uL (152-348); RED BLOOD CELL COUNT(AUTO) 3.44 MIL/uL (4.06-5.63); RED CELL DISTRIBUTION WIDTH 17.1 % (12.1-16.2); WHITE BLOOD COUNT (AUTO) 4.5 K/uL (3.6-10.2)
[2025-06-06 07:41] LABS: IRON, SERUM 50.0 ug/dL (50-175)
[2025-06-06 07:55] LABS: CREATININE 1.2 mg/dL (0.6-1.3); SODIUM SERUM 142.0 mmol/L (136-145); UREA NITROGEN, BLOOD 19.0 mg/dL (7-18)
[2025-06-06 08:00] VITALS: BP 126/71; TEMP 98; O2SAT 99
[2025-06-06] MEDS: DULOXETINE 30 MG CAPSULE.DR PO SCH (08:23)
[2025-06-06] MEDS: ATORVASTATIN 40 MG TABLET PO SCH (08:23)
[2025-06-06] MEDS: TOPIRAMATE 25 MG TABLET PO SCH (08:23)
[2025-06-06] MEDS: MONTELUKAST SODIUM 10 MG TABLET PO SCH (08:23)
[2025-06-06] MEDS: ASPIRIN EC 81 MG TABLET.DR PO SCH (08:23)
[2025-06-06] MEDS: DOCUSATE SODIUM 250 MG CAPSULE PO SCH (08:23)
[2025-06-06] MEDS: FUROSEMIDE 40 MG/4 ML VIAL IV SCH (08:23)
[2025-06-06] MEDS: ARIPIPRAZOLE 5 MG TABLET PO SCH (08:23)
[2025-06-06] MEDS: LEVOTHYROXINE SODIUM 25 MCG TABLET PO SCH (08:23)
[2025-06-06] MEDS: ISOSORBIDE MONONITRATE 30 MG TAB.SR.24H PO SCH (08:24)
[2025-06-06] MEDS: POTASSIUM CHLORIDE 20 MEQ TAB.PRT.SR PO SCH (08:24)
[2025-06-06] MEDS: LISINOPRIL 5 MG TABLET PO SCH (08:24)
[2025-06-06] MEDS: TAMSULOSIN HCL 0.4 MG CAP.SR.24H PO SCH (08:24)
[2025-06-06] MEDS: METOPROLOL SUCCINATE XL 25 MG TAB.SR.24H PO SCH (08:25)
[2025-06-06] MEDS ORDERED: FLUTICASONE/SALMETEROL 100/50 1 INH DISK.W.DEV IH SCH ×2 (09:00)
[2025-06-06] MEDS: MORPHINE SULFATE 2 MG/1 ML DISP.SYRIN IV PRN (10:39)
[2025-06-06] MEDS ORDERED: ISOS30TA9 PO (11:01)
[2025-06-06] MEDS ORDERED: ACET-73 PO (11:03)
[2025-06-06] MEDS: DABIGATRAN ETEXILATE MESYLATE 75 MG CAPSULE PO SCH (11:24)
[2025-06-06 11:53] VITALS: BP 117/67; TEMP 97.6; O2SAT 99
[2025-06-06] MEDS ORDERED: MOMETASONE/FORMOTEROL 8.8 GM HFA.AER.AD IH SCH (15:00)
[2025-06-06] MEDS ORDERED: MIRTAZAPINE 15 MG TABLET PO SCH (18:00)
[2025-06-07] MEDS ORDERED: METOPROLOL SUCCINATE XL 25 MG TAB.SR.24H PO SCH (09:00)
[2025-06-07] MEDS ORDERED: FUROSEMIDE 40 MG TABLET PO SCH (09:00)
[2025-06-07] MEDS ORDERED: LISINOPRIL 5 MG TABLET PO SCH (09:00)
== END 2025-06-06 13:30 | DRG 291 ==
LOC: ER 16:27 → TELE3 21:26
DX: I13.0 Hypertensive heart and chronic kidney disease with heart failure and stage 1 through stage 4 chronic kidney disease, or unspecified chronic kidney disease (principal); I50.33 Acute on chronic diastolic (congestive) heart failure; J96.21 Acute and chronic respiratory failure with hypoxia; Z68.41 Body mass index [BMI] 40.0-44.9, adult; N18.9 Chronic kidney disease, unspecified; E11.22 Type 2 diabetes mellitus with diabetic chronic kidney disease; E66.01 Morbid (severe) obesity due to excess calories; I87.303 Chronic venous hypertension (idiopathic) without complications of bilateral lower extremity; G47.33 Obstructive sleep apnea (adult) (pediatric); J44.89 Other specified chronic obstructive pulmonary disease; G89.29 Other chronic pain; Z86.718 Personal history of other venous thrombosis and embolism; Z85.819 Personal history of malignant neoplasm of unspecified site of lip, oral cavity, and pharynx; Z79.82 Long term (current) use of aspirin; Z79.899 Other long term (current) drug therapy; Z79.84 Long term (current) use of oral hypoglycemic drugs; Z79.01 Long term (current) use of anticoagulants; Z79.4 Long term (current) use of insulin; D69.6 Thrombocytopenia, unspecified; D64.9 Anemia, unspecified; Z99.81 Dependence on supplemental oxygen
CPT/HCPCS: 36415; 70450; 71045; 83550; 83735; 84100; 84443; 84484; 85025; 85730; 93307; G0378; J1815; J1938; J2270

== ENCOUNTER 2025-06-19 04:30 | Emergency (ER) | payer OTHER, MEDICAID ==
[~2025-06-19] VITALS: Ht 170.2 cm; Wt 127.5 kg
[~2025-06-19 04:30] MED LIST changes: -ACET-73 MT; +ACET-73 PO; -ALBU1.25 IH; -AMOX500C2 MT; -BENZ-38 PO; -DOXY100C5 MT; -FLUT1BLS11; -FURO40TA5; -GABA-534 PO; -IBUP-1953 MT; -INSU100C; -INSU100I26 SQ; -INSU300I3 SQ; -IPRA0.2S48 NEB; -ISOS30TA86 PO; +ISOS30TA9 PO; -LISI-782 PO; -METF-441; -METO-356 PO; -NITR0.4T48 SL; -NUT.237L70
[2025-06-19 05:13] LABS: PLATELET COUNT (AUTO) 119 K/uL (152-348); RED BLOOD CELL COUNT(AUTO) 3.61 MIL/uL (4.06-5.63); RED CELL DISTRIBUTION WIDTH 17.0 % (12.1-16.2); WHITE BLOOD COUNT (AUTO) 5.0 K/uL (3.6-10.2)
[2025-06-19] MEDS ORDERED: SWABABLE VALVE TRANSFER SET EA MC ONE (05:15)
[2025-06-19] MEDS ORDERED: IOHEXOL 350 100 ML INFUS..BTL ONE (05:15)
[2025-06-19] MEDS ORDERED: IV NORMAL SALINE 250 ML IV ONE (05:16)
[2025-06-19 05:20] LABS: CREATININE 1.1 mg/dL (0.6-1.3); SODIUM SERUM 141 mmol/L (136-145); UREA NITROGEN, BLOOD 18 mg/dL (7-18)
[2025-06-19 05:26] LABS: ASPARTATE AMINOTRANSFERASE 19 U/L (15-37); TOTAL PROTEIN, SERUM 7.7 g/dL (6.4-8.2)
[2025-06-19 07:15] VITALS: BP 144/82
[2025-06-19] MEDS ORDERED: DABIGATRAN ETEXILATE MESYLATE 75 MG CAPSULE PO SCH (09:00)
[2025-06-19 09:53] VITALS: BP 139/82; TEMP 98; O2SAT 96
== END 2025-06-19 08:53 | disposition left against medical advice (07) ==
LOC: ER 04:37
DX: I63.9 Cerebral infarction, unspecified (principal); R07.9 Chest pain, unspecified; R09.89 Other specified symptoms and signs involving the circulatory and respiratory systems; R53.1 Weakness; G89.29 Other chronic pain; I13.0 Hypertensive heart and chronic kidney disease with heart failure and stage 1 through stage 4 chronic kidney disease, or unspecified chronic kidney disease; E11.22 Type 2 diabetes mellitus with diabetic chronic kidney disease; N18.9 Chronic kidney disease, unspecified; J44.89 Other specified chronic obstructive pulmonary disease; G47.30 Sleep apnea, unspecified; F32.A Depression, unspecified; E78.5 Hyperlipidemia, unspecified; Z79.01 Long term (current) use of anticoagulants; Z68.42 Body mass index [BMI] 45.0-49.9, adult; Z79.82 Long term (current) use of aspirin; Z79.84 Long term (current) use of oral hypoglycemic drugs; Z79.890 Hormone replacement therapy; Z79.899 Other long term (current) drug therapy; Z86.718 Personal history of other venous thrombosis and embolism; Z86.73 Personal history of transient ischemic attack (TIA), and cerebral infarction without residual deficits; Z88.7 Allergy status to serum and vaccine
CPT/HCPCS: 99291; 70450; 71045; 80076; 80048; 82962; 85025; 85730; 86850; 86900; 86901; 84484 ×2; 36415; 70496; 70498; 93005; Q9967; A4606; A4663